=== PATIENT | male | born 1990 | race Caucasian/White ===

== ENCOUNTER 2017-09-14 14:04 | Observation (INO) | payer SELFPAY ==
[~2017-09-14] VITALS: Ht 195.6 cm; Wt 88.5 kg
[~2017-09-14 14:04] MED LIST: DICL25 PO; Z.0.NO CURRENT MEDS
[2017-09-14 14:07] VITALS: BP 132/80; PULSE 55; RESP 18; TEMP 98; O2SAT 100
--- NOTE | 2017-09-14 14:20 | PD ---
HPI Chief Complaint: Injury Time Seen by Provider: 14:13 Travel History International Travel<30 days: No Contact w/Intl Traveler<30days: No Traveled to known affect area: No History of Present Illness HPI 27-year-old male with history of substance abuse on Suboxone presents emergency department for evaluation of a right fourth digit injury sustained today when he cut it with a chainsaw. Patient is right-handed. He is unable to flex or extend the digit. I reports pain at the site but states he cannot feel the digit distal to the laceration site. He is not certain of his tetanus status. He has no other symptoms to report. [facility] Past Medical History Medical History: Denies Significant Hx Social History Alcohol Use: Yes (6 PK BEER EVERY OTHER DAY) Tobacco Use: Yes (1 PPD) Substance Use: Yes (DRINKS ALCOHOL ALMOST EVERY WEEKEND.) Allergies-Medications (Allergen,Severity, Reaction): Coded Allergies: penicillin G (Unverified Allergy, Severe, HIVES, 09/14/17) Reported Meds & Prescriptions Reported Meds & Active Scripts Active Reported Suboxone Sublingual Film (Buprenorphine-Naloxone Sublingual Film) 8-2 Mg Film 1 Film SL Unique ID number required: Review of Systems Except as stated in HPI: all other systems reviewed are Neg Physical Exam Narrative GENERAL: Well-nourished, well-developed male patient in no acute distress SKIN: Focused skin assessment warm/dry. There is a deep laceration at the PIP of the plantar surface of the right fourth digit. It is actively bleeding. Patient is unable to flex the digit at the joint. It is difficult to tell capillary refill or skin color due to significant amount of grease and oil from patient's profession. Patient reports altered sensation to touch in the distal affected digit. There are other superficial lacerations on the plantar surface of the right third digit. HEAD: Normocephalic. EYES: No scleral icterus. No injection or drainage. NECK: Supple, trachea midline. No JVD or lymphadenopathy. CARDIOVASCULAR: Regular rate and rhythm without murmurs, gallops, or rubs. RESPIRATORY: Breath sounds equal bilaterally. No accessory muscle use. GASTROINTESTINAL: Abdomen soft, non-tender, nondistended. MUSCULOSKELETAL: No cyanosis, or edema. BACK: Nontender without obvious deformity. No CVA tenderness. Data Data Last Documented VS Vital Signs Date Time Temp Pulse Resp B/P (MAP) Pulse Ox O2 Delivery O2 Flow Rate FiO2 09/14/17 15:29 51 18 135/93 (107) 99 Room Air 09/14/17 14:07 98.0 Orders Orders Iv Access Insert/Monitor (09/14/17 14:18) Complete Blood Count With Diff (09/14/17 14:18) Basic Metabolic Panel (Bmp) (09/14/17 14:18) Coag Profile (09/14/17 14:18) Hand, Complete ([id number]) (09/14/17 ) Tetanus/Diphtheria Tox Adult (Tetanus/Di (09/14/17 14:30) Morphine Inj (Morphine Inj) (09/14/17 14:30) Ondansetron Inj (Zofran Inj) (09/14/17 14:30) Morphine Inj (Morphine Inj) (09/14/17 14:33) Cefazolin Inj (Ancef Inj) (09/14/17 15:45) Diet Npo (09/14/17 Dinner) Consent (09/14/17 15:43) Consult Hand Surgery (09/14/17 ) Labs Laboratory Tests Test 09/14/17 15:15 White Blood Count 7.4 TH/MM3 Red Blood Count 4.69 MIL/MM3 Hemoglobin 13.8 GM/DL Hematocrit 41.1 % Mean Corpuscular Volume 87.6 FL Mean Corpuscular Hemoglobin 29.4 PG Mean Corpuscular Hemoglobin Concent 33.5 % Red Cell Distribution Width 12.9 % Platelet Count 232 TH/MM3 Mean Platelet Volume 7.3 FL Neutrophils (%) (Auto) 73.7 % Lymphocytes (%) (Auto) 17.1 % Monocytes (%) (Auto) 8.1 % Eosinophils (%) (Auto) 0.5 % Basophils (%) (Auto) 0.6 % Neutrophils # (Auto) 5.4 TH/MM3 Lymphocytes # (Auto) 1.3 TH/MM3 Monocytes # (Auto) 0.6 TH/MM3 Eosinophils # (Auto) 0.0 TH/MM3 Basophils # (Auto) 0.0 TH/MM3 CBC Comment DIFF FINAL Differential Comment Prothrombin Time 12.6 SEC Prothromb Time International Ratio 1.2 RATIO Activated Partial Thromboplast Time 27.8 SEC MDM Medical Decision Making Medical Screen Exam Complete: Yes Emergency Medical Condition: Yes Medical Record Reviewed: Yes Differential Diagnosis Laceration superficial versus deep versus tendon injury versus open fracture Narrative Course 27-year-old male who is right-handed presents emergency department for evaluation of a laceration sustained to the right fourth digit from a chainsaw. Patient has a deep laceration at the site of the PIP on the palmar surface with altered sensation in the distal affected digit. Color of the digit appears similar to the neighboring digits however it is very difficult to tell based on oil and dirt covering the patient's hands. Patient is updated on his tetanus, provided pain control, Ancef IV, and x-ray is complete. Laboratory Tests Test 09/14/17 15:15 White Blood Count 7.4 TH/MM3 Red Blood Count 4.69 MIL/MM3 Hemoglobin 13.8 GM/DL Hematocrit 41.1 % Mean Corpuscular Volume 87.6 FL Mean Corpuscular Hemoglobin 29.4 PG Mean Corpuscular Hemoglobin Concent 33.5 % Red Cell Distribution Width 12.9 % Platelet Count 232 TH/MM3 Mean Platelet Volume 7.3 FL Neutrophils (%) (Auto) 73.7 % Lymphocytes (%) (Auto) 17.1 % Monocytes (%) (Auto) 8.1 % Eosinophils (%) (Auto) 0.5 % Basophils (%) (Auto) 0.6 % Neutrophils # (Auto) 5.4 TH/MM3 Lymphocytes # (Auto) 1.3 TH/MM3 Monocytes # (Auto) 0.6 TH/MM3 Eosinophils # (Auto) 0.0 TH/MM3 Basophils # (Auto) 0.0 TH/MM3 CBC Comment DIFF FINAL Differential Comment Prothrombin Time 12.6 SEC Prothromb Time International Ratio 1.2 RATIO Activated Partial Thromboplast Time 27.8 SEC Laboratory Tests Test 09/14/17 15:15 White Blood Count 7.4 TH/MM3 Red Blood Count 4.69 MIL/MM3 Hemoglobin 13.8 GM/DL Hematocrit 41.1 % Mean Corpuscular Volume 87.6 FL Mean Corpuscular Hemoglobin 29.4 PG Mean Corpuscular Hemoglobin Concent 33.5 % Red Cell Distribution Width 12.9 % Platelet Count 232 TH/MM3 Mean Platelet Volume 7.3 FL Neutrophils (%) (Auto) 73.7 % Lymphocytes (%) (Auto) 17.1 % Monocytes (%) (Auto) 8.1 % Eosinophils (%) (Auto) 0.5 % Basophils (%) (Auto) 0.6 % Neutrophils # (Auto) 5.4 TH/MM3 Lymphocytes # (Auto) 1.3 TH/MM3 Monocytes # (Auto) 0.6 TH/MM3 Eosinophils # (Auto) 0.0 TH/MM3 Basophils # (Auto) 0.0 TH/MM3 CBC Comment DIFF FINAL Differential Comment Prothrombin Time 12.6 SEC Prothromb Time International Ratio 1.2 RATIO Activated Partial Thromboplast Time 27.8 SEC I spoke with Dr. Deleon, hand surgeon. I have forwarded a picture to her. Patient last ate breakfast at 8 AM this morning but has drank approximately 3 hours ago. Patient will remain n.p.o. I have discussed with the patient the possibility of losing the finger. He verbalizes understanding. Call has been placed to [facility] for admission. Diagnosis Primary Impression: Finger laceration with complication Qualified Codes: S61.219A - Laceration without foreign body of unspecified finger without damage to nail, initial encounter Additional Impression: Finger laceration involving tendon Qualified Codes: S61.219A - Laceration without foreign body of unspecified finger without damage to nail, initial encounter; S66.929A - Laceration of unspecified muscle, fascia and tendon at wrist and hand level, unspecified hand , initial encounter Admitting Information Admitting Physician Requests: Admit Condition: Stable Kadie Amezcua September 14, 2017 14:20
[2017-09-14 14:24] VITALS: BP 135/93; PULSE 52; RESP 19; O2SAT 100
[2017-09-14] MEDS ORDERED: SUBO8MIS SL (14:24)
[2017-09-14] MEDS ORDERED: MORPHINE SULFATE 2 MG/ML SYRINGE IV PUSH ONE (14:30)
[2017-09-14] MEDS ORDERED: ONDANSETRON HCL 4 MG/2 ML VIAL IV PUSH ONE (14:30)
[2017-09-14] MEDS ORDERED: TETANUS/DIPHTHERIA TOXOID ADULT 0.5 ML VIAL IM ONE (14:30)
[2017-09-14] MEDS ORDERED: MORPHINE SULFATE 4 MG/ML INJ ONE ×2 (14:33→19:04)
--- NOTE | 2017-09-14 14:58 | RADRPT ---
EXAM DATE/TIME: 09/14/2017 14:18 [facility] COMPARISON: No previous studies available for comparison. INDICATIONS : PT cut his hand with a chainsaw. Trauma. MEDICAL HISTORY : None. SURGICAL HISTORY : None. ENCOUNTER: Initial ACUITY: 1 day PAIN SCORE: 10/10 LOCATION: Right upper extremity FINDINGS: 3 views right hand. Comminuted fracture of the ring finger middle phalanx with dorsal angulation of t he distal fragment and one bone width volar displacement of the dominant distal fragment. Old healed fifth metacarpal fracture. CONCLUSION: Comminuted fracture of the ring finger middle phalanx with adjacent soft tissue defect. Marty Raza MD on September 14, 2017 at 14:54 Board Certified Radiologist. This report was verified electronically.
[2017-09-14 15:29] VITALS: BP 135/93; PULSE 51; RESP 18; O2SAT 99
[2017-09-14 15:36] LABS: AUTOMATED NEUTROPHIL # 5.4 TH/MM3 (1.8-7.7); BASOPHIL % 0.6 % (0.0-2.0); EOSINOPHIL % 0.5 % (0.0-4.0); HEMATOCRIT 41.1 % (39.0-51.0); HEMOGLOBIN 13.8 GM/DL (13.0-17.0); LYMPH % 17.1 % (9.0-44.0); LYMPHOCYTE # 1.3 TH/MM3 (1.0-4.8); MEAN CELL VOLUME 87.6 FL (80.0-100.0); MEAN CORPUSCULAR HEMOGLOBIN 29.4 PG (27.0-34.0); MEAN CORPUSCULAR HGB CONC 33.5 % (32.0-36.0); MEAN PLATELET VOLUME 7.3 FL (7.0-11.0); MONO % 8.1 % (0.0-8.0); MONOCYTE # 0.6 TH/MM3 (0-0.9); NEUT % 73.7 % (16.0-70.0); PLATELET COUNT 232 TH/MM3 (150-450); RED BLOOD COUNT 4.69 MIL/MM3 (4.50-5.90); RED CELL DISTRIBUTION WIDTH 12.9 % (11.6-17.2); WHITE BLOOD COUNT 7.4 TH/MM3 (4.0-11.0)
[2017-09-14 15:53] LABS: INTERNATIONAL NORMALIZED RATIO 1.2 RATIO; PROTHROMBIN TIME - PATIENT 12.6 SEC (9.8-11.6)
[2017-09-14 16:07] LABS: BICARBONATE 27.3 MEQ/L (21.0-32.0); CALCIUM 9.3 MG/DL (8.5-10.1); CREATININE 0.96 MG/DL (0.60-1.30)
[2017-09-14 16:15] VITALS: BP 150/103; PULSE 51; RESP 18; TEMP 98; O2SAT 99
[2017-09-14] MEDS ORDERED: ACETAMINOPHEN 1000 MG/100 ML 100 ML IV ONE (16:59)
[2017-09-14] MEDS ORDERED: BISACODYL 10 MG SUPP RECTAL PRN (17:00)
[2017-09-14] MEDS ORDERED: SODIUM CHLORIDE 0.9% FLUSH 10 ML FLUSH IV FLUSH PRN (17:00)
[2017-09-14] MEDS ORDERED: SENNOSIDES 8.6 MG TAB PO PRN (17:00)
[2017-09-14] MEDS ORDERED: NALOXONE HCL 0.4 MG/ML AMP IV PUSH PRN (17:00)
[2017-09-14] MEDS ORDERED: ONDANSETRON HCL 4 MG/2 ML VIAL IVP PRN (17:00)
[2017-09-14] MEDS ORDERED: ACETAMINOPHEN 325 MG TAB PO PRN (17:00)
[2017-09-14] MEDS ORDERED: MAGNESIUM HYDROXIDE SUSP 30 ML CUP PO PRN (17:00)
[2017-09-14] MEDS ORDERED: LACTULOSE SYRUP 20 GM/30 ML CUP PO PRN (17:00)
[2017-09-14] MEDS ORDERED: MIDAZOLAM HCL 2 MG/2 ML VIAL ONE (17:04)
[2017-09-14] MEDS ORDERED: fentaNYL CITRATE 250 MCG/5 ML AMP ONE (17:04)
[2017-09-14] MEDS ORDERED: CLINDAMYCIN PHOS 600 MG/4 ML VIAL ONE (17:07)
[2017-09-14] MEDS ORDERED: MORPHINE SULFATE 2 MG/ML SYRINGE IV PUSH PRN (17:15)
[2017-09-14] MEDS ORDERED: NEOMYCIN/POLYMYXIN 1 ML G.U. IRRIGANT ONE (17:15)
[2017-09-14] MEDS ORDERED: LIDOCAINE HCL 2% 20 ML VIAL ONE (17:15)
[2017-09-14] MEDS ORDERED: NEOMYCIN/POLYMYXIN 1 ML G.U. IRRIGANT IRRIGATION ONE (17:43)
[2017-09-14] MEDS ORDERED: LIDOCAINE HCL 2% 20 ML VIAL INFIL ONE (17:43)
[2017-09-14] MEDS ORDERED: BACITRACIN TOP OINT 15 GM TUBE ONE (18:03)
[2017-09-14] MEDS ORDERED: *MEPERIDINE 25 MG INJ VIAL PERIprocedural Use ONLY ONE (19:00)
[2017-09-14] MEDS ORDERED: *morphine SULFATE 4 MG/ML PERIprocedure ONLY ONE (19:16)
--- NOTE | 2017-09-14 19:16 | RADRPT ---
EXAM DATE/TIME: 09/14/2017 18:23 [facility] COMPARISON: No previous studies available for comparison. INDICATIONS : ORIF. PT cut his hand with a chainsaw. Trauma. MEDICAL HISTORY : None. SURGICAL HISTORY : None. ENCOUNTER: Initial ACUITY: 1 day PAIN SCORE: Non-responsive. LOCATION: Right upper extremity 4th Digit. FINDINGS: The patient is status post amputation of the right fourth middle and distal phalanges. No fracture ra diopaque foreign body is noted. CONCLUSION: Status post amputation of the right fourth middle and distal phalanges. Ernie Alanis MD on September 14, 2017 at 19:13 Board Certified Radiologist. This report was verified electronically.
[2017-09-14 19:45] VITALS: BP 115/77; PULSE 62; RESP 18; TEMP 97.6; O2SAT 100
[2017-09-14] MEDS ORDERED: DO NOT ADM ANY ANTICOAGULANT DRUGS PRN (20:30)
[2017-09-14] MEDS ORDERED: SODIUM CHLORIDE 0.9% FLUSH 10 ML FLUSH IV FLUSH SCH (21:00)
[2017-09-14] MEDS ORDERED: ROCURONIUM INJ 50 MG/5 ML SYRINGE IV PUSH ONE (21:34)
[2017-09-14] MEDS ORDERED: LIDOCAINE HCL 1% PF 5 ML SYRINGE OTHER ONE (21:34)
[2017-09-14] MEDS ORDERED: GLYCOPYRROLATE 1 MG/5 ML SYRINGE IV PUSH ONE (21:34)
[2017-09-14] MEDS ORDERED: PROPOFOL 200 MG/20 ML AMP IV ONE (21:34)
[2017-09-14] MEDS ORDERED: NEOSTIGMINE 5 MG/5 ML SYRINGE IV PUSH ONE (21:34)
[2017-09-14] MEDS ORDERED: DEXAMETHASONE SOD PHOS 4 MG/ML VIAL IV ONE (21:34)
[2017-09-14] MEDS ORDERED: ONDANSETRON HCL 4 MG/2 ML VIAL IV ONE (21:34)
--- NOTE | 2017-09-15 08:09 | MB ---
cc: Janelle Deleon MD DATE: 09/14/2017 REASON FOR CONSULTATION: Chainsaw injury right hand including the right middle and ring fingers. 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 He states that he thought the chainsaw was slowing down, but it was still running and sustained a significant laceration over his right ring finger. The patient denies any prior significant injury to the right hand. He does report a prior significant injury over the right elbow several years ago which had resulted in a nerve injury to the right upper extremity which has been improving. He does have a past medical history significant for substance abuse and is on Suboxone, but denies any current use. The patient denies any other injuries besides the right hand. The patient reports paresthesias in the right ring finger. He reports significant pain over the right ring finger. I was called urgently by the emergency room. PAST MEDICAL HISTORY: IV drug use. PAST SURGICAL HISTORY: Right elbow. ALLERGIES: PENICILLIN. MEDICATIONS: Suboxone. SOCIAL HISTORY: The patient smokes 1 pack per day. Significant alcohol use. PAST MEDICAL HISTORY: Significant for drug use, but denies current drug use. PHYSICAL EXAMINATION: The patient is alert and oriented. Exam of the right hand shows a near complete amputation of the right ring finger through the proximal aspect of the middle phalanx. Patient has no flexion distal to the laceration including no flexion of the FDS or FDP. The patient has a dusky finger without capillary refill distal to the laceration site. He has no sensation on the radial or ulnar side distal to the laceration. The patient has some superficial lacerations over the volar aspect of the right middle finger. He is able to flex the right middle finger, FDS and FDP. Sensation is intact on the radial and ulnar side. Less than 2 second capillary refill. IMAGING: X-ray of the right hand shows near complete amputation of the right ring finger with a comminuted fracture through the middle phalanx of the right ring finger with significant displacement. ASSESSMENT AND PLAN: A 27-year-old male with a chainsaw injury to the right ring finger with near amputation of the right ring finger through the middle phalanx and a superficial laceration of the right middle finger. Treatment options were discussed with the patient. This included possible flexor tendon repair, possible nerve repair, possible artery repair, possible pinning, possible open reduction and internal fixation, possible amputation of the finger. The patient declined transfer to [facility] for microsurgery over the finger. He understands he is at high risk for amputation of the finger. Tobacco cessation was discussed. The patient was taken to the emergency room urgently. Janelle Deleon MD [facility]/TL , 11:41 PM , 08:08 AM [facility]
--- NOTE | 2017-09-15 08:11 | MP ---
cc: Janelle Deleon MD DATE OF OPERATION: 09/14/2017 DATE OF PROCEDURE: 09/14/2017 PREOPERATIVE DIAGNOSES: 1. Chainsaw injury, right hand, with near amputation right ring finger through the middle phalanx. 2. Superficial lacerations volar aspect, right middle finger. POSTOPERATIVE DIAGNOSES: 1. Chainsaw injury right hand with near amputation right ring finger through the middle phalanx. 2. Superficial lacerations volar aspect right middle finger. PROCEDURE PERFORMED: 1. Revision amputation with neurectomies and direct closure, right ring finger through the proximal interphalangeal joint. 2. Repair of lacerations, right middle finger. SURGEON: Janelle Deleon MD ANESTHESIA: General and local. TOURNIQUET TIME: 15 minutes at 200 mmHg. INDICATIONS FOR PROCEDURE: Jamil Roberson is a 27-year-old right hand dominant male status post a chainsaw injury to the right hand just prior to presentation. He presents with absent sensation over the distal tip of the finger, inability to flex the FDS or FDP and absent circulation distal to the amputation site. Treatment options discussed with the patient including possible repair of all injured structures including tendon, nerve and bone versus revision amputation. He elected to proceed. He understands he is at high risk of need for revision amputation. DESCRIPTION OF PROCEDURE: The patient was identified in the preoperative holding area and the correct extremity was marked. The patient was taken to the operating room where anesthesia was induced. The right upper extremity was prepped and draped in normal sterile fashion. A Doppler was used and there was no dopplerable signal distal to the laceration. Upon inspecting the digital arteries, there was a positive ribbon sign as well as large gaps in the arteries. There was also complete laceration of both flexor tendons, digital nerves and a significant comminuted fracture of the middle phalanx. The decision was made at this time to perform a revision amputation of the finger. Neurectomies were performed. The finger was amputated through the proximal interphalangeal joint. Skin flaps were fashioned and direct closure was performed. This was confirmed under fluoroscopy. The lacerations over the right middle finger were closed with chromic. The patient was placed into a soft dressing and awoken from anesthesia without any complications. Approximately 15 mL of 2% lidocaine with epinephrine used to perform local anesthesia. The patient will be discharged home and follow up in the office. MD DWAINE Cannon/SANTY , 11:46 PM , 08:10 AM [facility]
== END 2017-09-14 21:35 | disposition left against medical advice (07) ==
LOC: HOR 14:04 → N07A 16:58
PROVIDERS: ADMIT Family Medicine; ATTEND Family Medicine
DX: S68.624A Partial traumatic transphalangeal amputation of right ring finger, initial encounter (principal); S61.212A Laceration without foreign body of right middle finger without damage to nail, initial encounter; F17.210 Nicotine dependence, cigarettes, uncomplicated; W29.3XXA Contact with powered garden and outdoor hand tools and machinery, initial encounter
CPT/HCPCS: 01830; 12001; 26951; 73130; 73140; 76000; 80048; 85025; 85610; 85730; 88302; 90471; 90714; 96365; 96375; 99285; J0131; J0690; J1100; J2175; J2250; J2270; J2405; J2710; J3010; 88304; 88305

== ENCOUNTER 2017-09-27 00:32 | Emergency (ER) | payer SELFPAY ==
[~2017-09-27 00:32] MED LIST changes: -DICL25 PO; +SUBO8MIS SL; -Z.0.NO CURRENT MEDS
== END 2017-09-27 01:00 | disposition left against medical advice (07) ==
LOC: NED 00:55
DX: S69.90XA Unspecified injury of unspecified wrist, hand and finger(s), initial encounter (principal)
CPT/HCPCS: 99281; 99292

== ENCOUNTER 2017-10-28 05:59 | Emergency (ER) | payer BC ==
[~2017-10-28] VITALS: Ht 195.6 cm; Wt 75.0 kg
[2017-10-28 06:00] VITALS: BP 149/90; PULSE 52; RESP 18; TEMP 98.9; O2SAT 100
[2017-10-28] MEDS ORDERED: SODIUM CHLOR 0.9% 1000 ML INJ 1,000 ML IV SCH (06:13)
[2017-10-28] MEDS ORDERED: MORPHINE SULFATE 4 MG/ML INJ IV PUSH ONE (06:15)
[2017-10-28] MEDS ORDERED: KETOROLAC TROMETHAMINE 30 MG/ML (IVP) VIAL IVP ONE (06:15)
[2017-10-28] MEDS ORDERED: SODIUM CHLORIDE 0.9% FLUSH 10 ML FLUSH IV FLUSH PRN (06:15)
[2017-10-28] MEDS ORDERED: ONDANSETRON ODT 4 MG TAB PO ONE (06:15)
--- NOTE | 2017-10-28 06:54 | RADRPT ---
EXAM DATE: 10/28/2017 6:46 AM EDT AGE/SEX: 27 years / Male INDICATIONS: Right lower back pain CLINICAL DATA: This is the patient's initial encounter. Patient reports that signs and symptoms have been present for 1 day and indicates a pain score of 10/10. MEDICAL/SURGICAL HISTORY: None. None. RADIATION DOSE: 3.56 CTDI (mGy) COMPARISON: No prior exams available for comparison. TECHNIQUE: Multiple contiguous axial images were obtained through the abdomen. Images were obtained using multiple row detector helical technique. Using dose reduction techniques, radiation dose was ke pt as low as reasonably achievable to obtain optimal diagnostic quality images. FINDINGS: Lower Lungs: The visualized lower lungs are clear. Liver: The liver has a homogeneous density without space-occupying lesion. There is no dilation of th e biliary tree. Spleen: Homogeneous density without enlargement. Pancreas: Unremarkable without mass or calcification. Kidneys: There is hydronephrosis of the right kidney and a slightly dilated ureter until a 2 mm calc ification in the proximal right ureter is at the level of the right side of the L4-5 disc space. Ther e is a 3 to 4 mm size calcification just to the left of the left psoas muscle, could be a stone. Adrenal Glands: Unremarkable. Aorta: The aorta and proximal iliac vessels are grossly unremarkable without aneurysmal dilation. Bowel/Mesentery: The bowel loops are grossly unremarkable. The cecum and sigmoid colon have a normal configuration. Abdominal Wall: Intact. Retroperitoneum: No evidence of adenopathy in the retrocrural, para-aortic, or deep pelvic regions. Bladder: Contours are smooth. Reproductive Organs: No abnormal masses or calcifications seen. Inguinal: The inguinal region is unremarkable without evidence of adenopathy. Bony Structures: Unremarkable. CONCLUSION: 1. Mild hydronephrosis of the right kidney with a 2 mm calcification proximal right ureter. 2. Small calcification lateral to left psoas muscle more posterior than a typical ureteral calcifica tion Electronically signed by: James Walker MD 10/28/2017 6:53 AM EDT
[2017-10-28 06:57] LABS: AUTOMATED NEUTROPHIL # 2.6 TH/MM3 (1.8-7.7); BASOPHIL # 0.1 TH/MM3 (0-0.2); EOSINOPHIL # 0.5 TH/MM3 (0-0.4); EOSINOPHIL % 6.4 % (0.0-4.0); HEMATOCRIT 44.2 % (39.0-51.0); HEMOGLOBIN 14.7 GM/DL (13.0-17.0); LYMPH % 44.3 % (9.0-44.0); LYMPHOCYTE # 3.1 TH/MM3 (1.0-4.8); MEAN CELL VOLUME 88.9 FL (80.0-100.0); MEAN CORPUSCULAR HEMOGLOBIN 29.5 PG (27.0-34.0); MEAN CORPUSCULAR HGB CONC 33.2 % (32.0-36.0); MEAN PLATELET VOLUME 7.4 FL (7.0-11.0); MONO % 11.9 % (0.0-8.0); MONOCYTE # 0.8 TH/MM3 (0-0.9); NEUT % 36.4 % (16.0-70.0); PLATELET COUNT 209 TH/MM3 (150-450); RED BLOOD COUNT 4.97 MIL/MM3 (4.50-5.90); RED CELL DISTRIBUTION WIDTH 13.6 % (11.6-17.2); WHITE BLOOD COUNT 7.1 TH/MM3 (4.0-11.0)
--- NOTE | 2017-10-28 07:02 | PD ---
HPI Chief Complaint: Pain: Acute or Chronic Time Seen by Provider: 06:07 Travel History International Travel<30 days: No Contact w/Intl Traveler<30days: No Traveled to known affect area: No History of Present Illness HPI Patient is a 27-year-old male who comes in complaining of sudden onset right sided flank pain. He says it woke him up from sleep this morning. Says the pain radiates into his right groin. He has had some nausea, no vomiting. He did not take anything for the pain. He says any sort of movement makes his pain worse. He denies fever chills. He denies any urinary symptoms. Severity is moderate. PFSH Past Medical History Medical History: Denies Significant Hx Diminished Hearing: No Immunizations Current: Yes Social History Alcohol Use: No (DENIES) Tobacco Use: Yes (1 PPD) Substance Use: Yes (MARIJUANA ) Allergies-Medications (Allergen,Severity, Reaction): Coded Allergies: penicillin G (Unverified Allergy, Severe, HIVES, 10/28/17) Reported Meds & Prescriptions Reported Meds & Active Scripts Active [place] (Hydrocodone-Acetaminophen) 5 Mg-325 Mg Tab 1 Tab PO Q6H PRN 3 Days Flomax (Tamsulosin HCl) 0.4 Mg Cap 0.4 Mg PO HS 30 Days Reported Suboxone Sublingual Film (Buprenorphine-Naloxone Sublingual Film) 8-2 Mg Film 1 Film SL Unique ID number required: Review of Systems Except as stated in HPI: all other systems reviewed are Neg General / Constitutional: No: Fever, Chills HENT: No: Headaches, Lightheadedness Cardiovascular: No: Chest Pain or Discomfort Respiratory: No: Shortness of Breath Gastrointestinal: Positive: Nausea, Abdominal Pain, No: Vomiting Genitourinary: Positive: Flank Pain Musculoskeletal: No: Myalgias, Edema Skin: No Rash, No Change in Pigmentation Neurologic: No: Weakness, Dizziness Physical Exam Narrative GENERAL: Awake and alert, in moderate distress due to pain. SKIN: Focused skin assessment warm/dry. HEAD: Atraumatic. Normocephalic. EYES: Pupils equal and round. No scleral icterus. ENT: Mucous membranes pink and moist. NECK: Trachea midline. No JVD. CARDIOVASCULAR: Regular rate and rhythm. No murmur appreciated. RESPIRATORY: No accessory muscle use. Clear to auscultation. Breath sounds equal bilaterally. GASTROINTESTINAL: Abdomen soft, non-tender, nondistended. Right CVA tenderness. MUSCULOSKELETAL: No obvious deformities. No clubbing. No cyanosis. No edema. NEUROLOGICAL: Awake and alert. No obvious cranial nerve deficits. Motor grossly within normal limits. Normal speech. PSYCHIATRIC: Appropriate mood and affect; insight and judgment normal. Data Data Last Documented VS Vital Signs Date Time Temp Pulse Resp B/P (MAP) Pulse Ox O2 Delivery O2 Flow Rate FiO2 10/28/17 09:50 98.3 63 16 94/57 (69) 100 21 10/28/17 07:34 Room Air Orders Orders Complete Blood Count With Diff (10/28/17 06:13) Comprehensive Metabolic Panel (10/28/17 06:13) Urinalysis - C+S If Indicated (10/28/17 06:13) Ct Abd/Pel W/O Iv Contrast (10/28/17 06:13) Iv Access Insert/Monitor (10/28/17 06:13) Ecg Monitoring (10/28/17 06:13) Oximetry (10/28/17 06:13) Morphine Inj (Morphine Inj) (10/28/17 06:15) Sodium Chlor 0.9% 1000 Ml Inj (Ns 1000 M (10/28/17 06:13) Sodium Chloride 0.9% Flush (Ns Flush) (10/28/17 06:15) Ketorolac Inj (Toradol Inj) (10/28/17 06:15) Ondansetron Odt (Zofran Odt) (10/28/17 06:15) Potassium Chloride (Kcl) (10/28/17 07:30) Ed Discharge Order (10/28/17 09:11) Labs Laboratory Tests Test 10/28/17 06:20 10/28/17 08:20 White Blood Count 7.1 TH/MM3 Red Blood Count 4.97 MIL/MM3 Hemoglobin 14.7 GM/DL Hematocrit 44.2 % Mean Corpuscular Volume 88.9 FL Mean Corpuscular Hemoglobin 29.5 PG Mean Corpuscular Hemoglobin Concent 33.2 % Red Cell Distribution Width 13.6 % Platelet Count 209 TH/MM3 Mean Platelet Volume 7.4 FL Neutrophils (%) (Auto) 36.4 % Lymphocytes (%) (Auto) 44.3 % Monocytes (%) (Auto) 11.9 % Eosinophils (%) (Auto) 6.4 % Basophils (%) (Auto) 1.0 % Neutrophils # (Auto) 2.6 TH/MM3 Lymphocytes # (Auto) 3.1 TH/MM3 Monocytes # (Auto) 0.8 TH/MM3 Eosinophils # (Auto) 0.5 TH/MM3 Basophils # (Auto) 0.1 TH/MM3 CBC Comment DIFF FINAL Differential Comment Blood Urea Nitrogen 14 MG/DL Creatinine 1.16 MG/DL Random Glucose 112 MG/DL Total Protein 7.0 GM/DL Albumin 3.8 GM/DL Calcium Level 8.9 MG/DL Alkaline Phosphatase 99 U/L Aspartate Amino Transf (AST/SGOT) 24 U/L Alanine Aminotransferase (ALT/SGPT) 22 U/L Total Bilirubin 0.3 MG/DL Sodium Level 142 MEQ/L Potassium Level 3.3 MEQ/L Chloride Level 109 MEQ/L Carbon Dioxide Level 24.1 MEQ/L Anion Gap 9 MEQ/L Estimat Glomerular Filtration Rate 74 ML/MIN Urine Color YELLOW Urine Turbidity HAZY Urine pH 6.0 Urine Specific [place] 1.019 Urine Protein 30 mg/dL Urine Glucose (UA) NEG mg/dL Urine Ketones NEG mg/dL Urine Occult Blood LARGE Urine Nitrite NEG Urine Bilirubin NEG Urine Urobilinogen 2.0 mg/dL Urine Leukocyte Esterase TRACE Urine RBC 113 /hpf Urine WBC 4 /hpf Urine Squamous Epithelial Cells <1 /hpf Urine Amorphous Sediment RARE Urine Mucus FEW /lpf Microscopic Urinalysis Comment CULT NOT INDICATED MDM Medical Decision Making Medical Screen Exam Complete: Yes Emergency Medical Condition: Yes Medical Record Reviewed: Yes Differential Diagnosis Renal stone versus UTI versus muscle strain Narrative Course Patient is a 27-year-old male comes in complaining of right-sided flank pain. Exam shows right CVA tenderness. IV established, labs sent. CT abdomen and pelvis performed shows a 2 mm stone on the right. Patient given IV fluids, Toradol, morphine. Signed out to oncoming provider to follow up testing and disposition the patient. Diagnosis Primary Impression: Renal stone Scripts Hydrocodone-Acetaminophen ([place]) 5 Mg-325 Mg Tab 1 TAB PO Q6H Y for PAIN for 3 Days, #12 TAB 0 Refills Prov: Selene Cleary MD 10/28/17 Tamsulosin (Flomax) 0.4 Mg Cap 0.4 MG PO HS for Manage Prostate Problems for 30 Days, #30 CAP 0 Refills Prov: Selene Cleary MD 10/28/17 Kimberlee Poon MD Oct 28, 2017 07:02
[2017-10-28 07:12] LABS: ALBUMIN 3.8 GM/DL (3.4-5.0); AST (GOT) 24 U/L (15-37); BICARBONATE 24.1 MEQ/L (21.0-32.0); BLOOD UREA NITROGEN 14 MG/DL (7-18); CALCIUM 8.9 MG/DL (8.5-10.1); CHLORIDE 109 MEQ/L (98-107); CREATININE 1.16 MG/DL (0.60-1.30); GLOMERULAR FILTRATION RATE 74 ML/MIN (>89); GLUCOSE,RANDOM 112 MG/DL (74-106); SODIUM (NA) 142 MEQ/L (136-145)
[2017-10-28 07:16] LABS: ALKALINE PHOSPHATASE 99 U/L (45-117); ALT (GPT) 22 U/L (12-78); TOTAL BILIRUBIN ADULT 0.3 MG/DL (0.2-1.0)
--- NOTE | 2017-10-28 07:28 | PD ---
Physical Exam Narrative Received signout from Dr. Poon for follow-up on labs. Patient is currently resting comfortably in the stretcher without complaints. He has not submitted a urine specimen, and we are awaiting urine results. Chemistry shows normal renal function and a slightly decreased potassium. He will be given 20 mEq of potassium p.o. 0904: UA showed trace LE, nitrite negative, positive for blood, culture not indicated. CONCLUSION: 1. Mild hydronephrosis of the right kidney with a 2 mm calcification proximal right ureter. 2. Small calcification lateral to left psoas muscle more posterior than a typical ureteral calcification Will DC with Flomax 0.4 mg p.o. nightly 30 days. Also DC with a short course of [place] 5/325mg po q6hrs prn (12 tabs) as needed. Data Data Last Documented VS Vital Signs Date Time Temp Pulse Resp B/P (MAP) Pulse Ox O2 Delivery O2 Flow Rate FiO2 10/28/17 07:34 97.8 46 16 131/87 (102) Room Air 10/28/17 06:00 100 Orders Orders Complete Blood Count With Diff (10/28/17 06:13) Comprehensive Metabolic Panel (10/28/17 06:13) Urinalysis - C+S If Indicated (10/28/17 06:13) Ct Abd/Pel W/O Iv Contrast (10/28/17 06:13) Iv Access Insert/Monitor (10/28/17 06:13) Ecg Monitoring (10/28/17 06:13) Oximetry (10/28/17 06:13) Morphine Inj (Morphine Inj) (10/28/17 06:15) Sodium Chlor 0.9% 1000 Ml Inj (Ns 1000 M (10/28/17 06:13) Sodium Chloride 0.9% Flush (Ns Flush) (10/28/17 06:15) Ketorolac Inj (Toradol Inj) (10/28/17 06:15) Ondansetron Odt (Zofran Odt) (10/28/17 06:15) Potassium Chloride (Kcl) (10/28/17 07:30) Labs Laboratory Tests Test 10/28/17 06:20 10/28/17 08:20 White Blood Count 7.1 TH/MM3 Red Blood Count 4.97 MIL/MM3 Hemoglobin 14.7 GM/DL Hematocrit 44.2 % Mean Corpuscular Volume 88.9 FL Mean Corpuscular Hemoglobin 29.5 PG Mean Corpuscular Hemoglobin Concent 33.2 % Red Cell Distribution Width 13.6 % Platelet Count 209 TH/MM3 Mean Platelet Volume 7.4 FL Neutrophils (%) (Auto) 36.4 % Lymphocytes (%) (Auto) 44.3 % Monocytes (%) (Auto) 11.9 % Eosinophils (%) (Auto) 6.4 % Basophils (%) (Auto) 1.0 % Neutrophils # (Auto) 2.6 TH/MM3 Lymphocytes # (Auto) 3.1 TH/MM3 Monocytes # (Auto) 0.8 TH/MM3 Eosinophils # (Auto) 0.5 TH/MM3 Basophils # (Auto) 0.1 TH/MM3 CBC Comment DIFF FINAL Differential Comment Blood Urea Nitrogen 14 MG/DL Creatinine 1.16 MG/DL Random Glucose 112 MG/DL Total Protein 7.0 GM/DL Albumin 3.8 GM/DL Calcium Level 8.9 MG/DL Alkaline Phosphatase 99 U/L Aspartate Amino Transf (AST/SGOT) 24 U/L Alanine Aminotransferase (ALT/SGPT) 22 U/L Total Bilirubin 0.3 MG/DL Sodium Level 142 MEQ/L Potassium Level 3.3 MEQ/L Chloride Level 109 MEQ/L Carbon Dioxide Level 24.1 MEQ/L Anion Gap 9 MEQ/L Estimat Glomerular Filtration Rate 74 ML/MIN Urine Color YELLOW Urine Turbidity HAZY Urine pH 6.0 Urine Specific [place] 1.019 Urine Protein 30 mg/dL Urine Glucose (UA) NEG mg/dL Urine Ketones NEG mg/dL Urine Occult Blood LARGE Urine Nitrite NEG Urine Bilirubin NEG Urine Urobilinogen 2.0 mg/dL Urine Leukocyte Esterase TRACE Urine RBC 113 /hpf Urine WBC 4 /hpf Urine Squamous Epithelial Cells <1 /hpf Urine Amorphous Sediment RARE Urine Mucus FEW /lpf Microscopic Urinalysis Comment CULT NOT INDICATED MDM Supervised Visit with [facility]: No Diagnosis Primary Impression: Renal stone Additional Impression: Hypokalemia Referrals: Baltazar Connors DO Patient Instructions: General Instructions, Kidney Stones (ED) Additional Instruction: 1. Meds as directed. 2. Follow-up with urologist, Dr. Connors. 3. Return to the ER immediately for fever, vomiting, inability to urinate, worsening pain, or for any new/worrisome/worsening symptoms. Scripts Hydrocodone-Acetaminophen ([place]) 5 Mg-325 Mg Tab 1 TAB PO Q6H Y for PAIN for 3 Days, #12 TAB 0 Refills Prov: Selene Cleary MD 10/28/17 Tamsulosin (Flomax) 0.4 Mg Cap 0.4 MG PO HS for Manage Prostate Problems for 30 Days, #30 CAP 0 Refills Prov: Selene Cleary MD 10/28/17 Disposition: 01 DISCHARGE HOME Condition: Stable Selene Cleary MD Oct 28, 2017 07:28
[2017-10-28] MEDS ORDERED: POTASSIUM CHLORIDE 20 MEQ CONTROLLED RELEASE TAB PO ONE (07:30)
[2017-10-28 07:34] VITALS: BP 131/87; PULSE 46; RESP 16; TEMP 97.8
[2017-10-28 08:41] VITALS: BP 144/67; TEMP 98.4
[2017-10-28 08:59] LABS: AMORPHOUS SEDIMENT, URINE RARE; BILIRUBIN, URINE NEG (NEG); BLOOD, URINE LARGE (NEG); GLUCOSE,URINE NEG (NEG); KETONE, URINE NEG (NEG); MUCUS URINE FEW /lpf (OCC); NITRITE,URINE NEG (NEG); SQUAMOUS EPITHELIAL CELL URINE <1 /hpf (0-5); URINE COLOR YELLOW (YELLW/STRAW); URINE LEUKOCYTE ESTERASE TRACE (NEG)
[2017-10-28] MEDS ORDERED: NORC5TAB PO (09:09)
[2017-10-28] MEDS ORDERED: TAMS5CAP PO (09:09)
[2017-10-28 09:50] VITALS: BP 94/57; TEMP 98.3
== END 2017-10-28 09:57 | disposition home or self-care (01) ==
LOC: NEPE 05:59
DX: N13.2 Hydronephrosis with renal and ureteral calculous obstruction (principal); E87.6 Hypokalemia; R11.0 Nausea; F17.210 Nicotine dependence, cigarettes, uncomplicated; F12.90 Cannabis use, unspecified, uncomplicated; Z88.0 Allergy status to penicillin
CPT/HCPCS: 74176; 80053; 81001; 85025; 96361; 96374; 96375; 99284; J1885; J2270; J7030